=== PATIENT | female | born 1975 | race Caucasian/White ===

== ENCOUNTER 2017-05-13 14:06 | Day surgery (SDC) | payer OTHER ==
[2017-05-13 15:06] VITALS: BMI 28.5
[2017-05-13 15:07] VITALS: BP 114/58; TEMP 99
[2017-05-13] MEDS ORDERED: Iron Sucrose Complex 500 MG in Sodium Chloride 0.9% 250 ML 250 ML IVPB SCH (15:11)
[2017-05-13] MEDS ORDERED: Acetaminophen 500 MG TAB PO SCH (15:15)
== END 2017-05-13 20:00 | disposition home or self-care (01) ==
LOC: L&D/OP 14:06
PROVIDERS: ATTEND Family Medicine
DX: O99.019 Anemia complicating pregnancy, unspecified trimester (principal); D50.9 Iron deficiency anemia, unspecified
CPT/HCPCS: 96361; 96365; 96366; 99282; J1756; J7050

== ENCOUNTER 2017-06-11 13:21 | Outpatient (CLI) | payer OTHER ==
--- NOTE | 2017-06-11 15:50 | ULT ---
OB ULTRASOUND: 06/11/17 HISTORY: Size and dates. FINDINGS: A single live intrauterine gestation is seen with an estimated gestational age of 27 weeks, 6 days an d LANI of 09/04/17. The estimated weight measures 1131 grams or 2 lb. 8 oz. measurements are as follows: BPD 6.97 cm 28 weeks, 0 days HC 25.53 cm 27 weeks, 5 days AC 23.54 cm 27 weeks, 6 days FL 5.20 cm 27 weeks, 5 days heart rate measures 145 beats per minute. KAE is 16.8 cm. Placenta is anteriorly located withou t evidence of placenta previa. Three vessel cord, cord insertion, kidneys, bladder, stomach, four chamber heart, lateral vent ricles, cerebellum, spine, lips/nose, upper and lower extremities are visualized. No definite a nomalies are seen. IMPRESSION: Single live IUP of 27 weeks, 6 days, estimated gestational age and LANI at 09/04/17. POS: [facility]
== END 2017-06-11 13:22 | disposition home or self-care (01) ==
LOC: ULT 13:21
PROVIDERS: ATTEND Family Medicine
DX: O99.89 Other specified diseases and conditions complicating pregnancy, childbirth and the puerperium (principal); R01.1 Cardiac murmur, unspecified; Z3A.26 26 weeks gestation of pregnancy
CPT/HCPCS: 76805; 93306

== ENCOUNTER 2017-08-20 14:46 | Day surgery (SDC) | payer OTHER ==
[2017-08-20] MEDS ORDERED: Iron Sucrose Complex 500 MG in Sodium Chloride 0.9% 250 ML 250 ML IVPB SCH (15:43)
[2017-08-20] MEDS ORDERED: Acetaminophen 500 MG TAB PO SCH (15:45)
[2017-08-20 15:46] VITALS: BMI 29.9
[2017-08-20 15:47] VITALS: BP 111/58; TEMP 98.4
== END 2017-08-20 20:20 | disposition home or self-care (01) ==
LOC: L&D/OP 14:46
PROVIDERS: ATTEND Family Medicine
DX: K90.89 Other intestinal malabsorption (principal); Z79.899 Other long term (current) drug therapy
CPT/HCPCS: 96361; 96365; 96366; 99282; J1756; J7050

== ENCOUNTER 2017-09-14 04:59 | Inpatient (IN) | payer OTHER ==
[2017-09-14 05:23] VITALS: BMI 31.0
[2017-09-14] MEDS ORDERED: NS w/ Oxytocin 10 units 500 ML IV SCH ×2 (06:00)
[2017-09-14] MEDS ORDERED: Lidocaine 1% (PF) 30 ML VIAL SC PRN (06:00)
[2017-09-14] MEDS ORDERED: Lactated Ringer's 1,000 ML IV SCH (06:02)
[2017-09-14] MEDS ORDERED: Promethazine HCl 25 MG/ML VIAL IM PRN ×2 (06:02→07:05)
[2017-09-14] MEDS ORDERED: Ondansetron HCl/PF 4 MG/2 ML Vial IVP PRN ×3 (06:02→12:13)
[2017-09-14 06:09] LABS: Hemoglobin 10.5 g/dL (12.0-16.0); Mean Corpuscular HGB CONC 32.9 g/dL (32.0-36.0); Mean Corpuscular Hemoglobin 23.4 pg (27.0-31.0); Platelet Count 174 thou/uL (130-400); RBC Distribution Width 21.3 % (11.5-14.5); White Blood Cell (WBC) Count 5.9 thou/uL (4.8-10.8)
[2017-09-14] MEDS ORDERED: Bupivacaine 0.5% 20 ML, fentaNYL Citrate/PF 400 MCG in Sodium Chloride 0.9% 72 ML EPIDURAL SCH (06:15)
[2017-09-14] MEDS ORDERED: Bupivacaine 0.5% 10 ML VIAL ONE (06:35)
[2017-09-14] MEDS ORDERED: Fentanyl 100 MCG/2 ML VIAL ONE (06:35)
[2017-09-14 06:42] LABS: HBSAg Index 0.19 S/CO (0-0.99); Hep B Surf Ag Non-Reactive S/CO (NonReactive)
[2017-09-14 06:43] LABS: Syphilis Antibody Nonreactive (Nonreactive); Syphilis Antibody Index 0.05 S/CO (<1.00 Non-Reactive)
[2017-09-14] MEDS ORDERED: Ondansetron ODT 4 MG TAB PO PRN (06:43)
[2017-09-14] MEDS ORDERED: Bupivacaine 0.25% 10 ML VIAL EPIDURAL ONE (07:02)
[2017-09-14] MEDS ORDERED: Naloxone HCl 0.4 mg/ml Vial IVP PRN ×2 (07:05)
[2017-09-14] MEDS ORDERED: diphenhydrAMINE 50 MG/ML VIAL IVP PRN (07:05)
[2017-09-14] MEDS ORDERED: Eucerin (Mineral Oil/Petrolatum,White) 30 gm Jar TOP PRN (07:05)
[2017-09-14] MEDS ORDERED: Acetaminophen 325 MG TAB PO PRN (07:05)
[2017-09-14] MEDS ORDERED: Lactated Ringer's 500 ML IV PRN (07:05)
[2017-09-14] MEDS ORDERED: ePHEDrine/0.9% NaCl/PF SYRINGE 50 mg/10 ml SLOW IVP PRN (07:05)
[2017-09-14] MEDS ORDERED: Fentanyl 100 MCG/2 ML VIAL I-THECAL ONE (07:05)
[2017-09-14] MEDS ORDERED: Fentanyl 4mcg/Marcaine 0.1% Cassette 100 ML EPIDURAL SCH (07:15)
[2017-09-14] MEDS ORDERED: Communication Order-Pharmacy FS SCH (07:15)
[2017-09-14] MEDS: NS / Oxytocin 40 units/1000ml 1,000 ML ONE ×2 (10:43→12:34)
[2017-09-14] MEDS ORDERED: Milk Of Magnesia 30 ML UDCUP PO PRN (12:13)
[2017-09-14] MEDS ORDERED: NS / Oxytocin 40 units/1000ml 1,000 ML IV SCH (12:13)
[2017-09-14] MEDS ORDERED: Preparation H Ointment 28 GM TUBE PR PRN (12:13)
[2017-09-14] MEDS ORDERED: diphenhydrAMINE 25 MG CAP PO PRN (12:13)
[2017-09-14] MEDS ORDERED: Bisacodyl 10 MG SUPP PR PRN (12:13)
[2017-09-14] MEDS ORDERED: HYDROcodone/Acetaminophen 5/325 mg Tablet PO PRN (12:13)
[2017-09-14] MEDS ORDERED: Benzocaine/Menthol 20-0.5% 60 ML CAN TOP PRN (12:13)
[2017-09-14] MEDS ORDERED: Acetaminophen/Codeine 30-300mg Tablet PO PRN (12:13)
[2017-09-14] MEDS: Ibuprofen 800 MG TAB PO SCH ×2 (18:47→23:53)
[2017-09-14] MEDS: Ferrous Sulfate 325 MG TAB PO SCH (18:48)
[2017-09-14] MEDS: Docusate Calcium (SURFAK) 240 MG CAP PO SCH (23:53)
[2017-09-15] MEDS: Ferrous Sulfate 325 MG TAB PO SCH (08:17)
[2017-09-15] MEDS: Docusate Calcium (SURFAK) 240 MG CAP PO SCH (09:03)
[2017-09-15] MEDS: Ibuprofen 800 MG TAB PO SCH (09:03)
[2017-09-15 11:26] VITALS: BP 120/61; TEMP 98.3
== END 2017-09-15 14:50 | disposition home or self-care (01) | DRG 775 ==
LOC: L&D/OP 04:59 → L&D 05:32 → 3SW 12:32
PROVIDERS: ADMIT Family Medicine; ATTEND Family Medicine
PROC: 10E0XZZ Delivery of Products of Conception, External Approach (ICD-10-PCS; principal; 2017-09-14)
DX: O24.420 Gestational diabetes mellitus in childbirth, diet controlled (principal); O99.02 Anemia complicating childbirth; Z3A.40 40 weeks gestation of pregnancy; Z37.0 Single live birth
CPT/HCPCS: 36415; 36416; 51702; 85027; 86780; 86850; 86900; 86901; 87340; 99285; J3010; J3490; J7050; Q0162